=== PATIENT | male | born 1950 | race Hispanic/Latino ===

== ENCOUNTER 2017-05-27 14:37 | Inpatient (IN) | payer BC, OTHER ==
[~2017-05-27] VITALS: Ht 167.6 cm; Wt 124.9 kg
[2017-05-27 10:52] VITALS: BP 160/86
[2017-05-27 11:14] LABS: BASOPHILS % (AUTO) 0.4 % (0.0-5.0); EOSINOPHILS % (AUTO) 1.6 % (0.0-8.0); HEMATOCRIT 35.1 % (42-54); LYMPHOCYTES % (AUTO) 20.2 % (21.0-51.0); MEAN CORPUSCULAR HEMOGLOBIN 29.1 pg (27.0-33.0); MEAN CORPUSCULAR HGB CONC 32.5 g/dL (32.0-36.0); MEAN CORPUSCULAR VOLUME 89.5 fL (79-99); NEUTROPHILS % (AUTO) 68.8 % (40.0-77.0); PLATELET COUNT (AUTO) 296 K/uL (130-400); RED BLOOD CELL COUNT(AUTO) 3.92 MIL/uL (4.50-6.20); RED CELL DISTRIBUTION WIDTH 15.5 % (11.0-15.5); WHITE BLOOD COUNT (AUTO) 10.8 K/uL (4.8-10.8)
[2017-05-27 11:15] LABS: CREATININE 1.4 mg/dL (0.5-1.5); POTASSIUM 4.7 mmol/L (3.5-5.1)
[~2017-05-27 14:37] MED LIST: ALLO300T2 PO; ATOR20TA65 PO; CHOL500050 PO; FERR-82 PO; GABA-531 PO; INHALER IH; LISI-613 PO; PRED1TAB PO; TRAM50TA4 PO
[2017-05-30] VITALS (22 sets, daily range): BP systolic 112–204; BP diastolic 62–120
[2017-05-30] MEDS: CLINDAMYCIN 900 MG/D5% WATER 50 ML IV SCH ×2 (08:00→10:30)
[2017-05-30] MEDS ORDERED: LACTATED RINGERS 1000ML 1,000 ML IV ONE (08:10)
[2017-05-30] MEDS ORDERED: ALBU8.5H8 IH (08:28)
[2017-05-30] MEDS ORDERED: ACETAMINOPHEN EXTRA STRENGTH 500 MG TABLET ONE (08:33)
[2017-05-30] MEDS ORDERED: METOCLOPRAMIDE 10 MG/2 ML VIAL ONE (08:33)
[2017-05-30] MEDS ORDERED: KETOROLAC TROMETHAMINE 15MG/ML ONE (08:33)
[2017-05-30] MEDS ORDERED: CELECOXIB 200 MG CAP ONE (08:34)
[2017-05-30] MEDS ORDERED: OXYCODONE HCL 10 MG TAB.SR.12H PO ONE (08:34)
[2017-05-30] MEDS ORDERED: CLINDAMYCIN PHOSPHATE 150 MG/ML 6ML VIAL ONE (09:00)
[2017-05-30] MEDS ORDERED: BUPIVACAINE/PF 0.25% 30ML VIAL IJ ONE (09:01)
[2017-05-30] MEDS ORDERED: DEXAMETHASONE SOD PHOSPHATE 10MG/ML 1ML VIAL ONE (09:46)
[2017-05-30] MEDS ORDERED: GLYCOPYRROLATE 0.2 MG/ML 5 ML VIAL ONE (09:46)
[2017-05-30] MEDS ORDERED: MIDAZOLAM HCL 1 MG/ML 2ML VIAL ONE (09:46)
[2017-05-30] MEDS ORDERED: LIDOCAINE PF 2% 5ML ABBOJECT ONE (09:46)
[2017-05-30] MEDS ORDERED: PROPOFOL 10 MG/ML 20ML VIAL IV ONE (09:47)
[2017-05-30] MEDS ORDERED: TRANEXAMIC ACID 1000MG/10ML IV ONE (09:48)
[2017-05-30] MEDS ORDERED: FENTANYL CITRATE PF 50 MCG/1 ML 2ML VIAL ONE (11:05)
[2017-05-30] MEDS: SODIUM CHLORIDE 0.9% 1000ML 1,000 ML IV SCH (12:26)
[2017-05-30] MEDS ORDERED: PROMETHAZINE HCL 25 MG/ML 1ML AMPULE IM PRN (12:30)
[2017-05-30] MEDS ORDERED: OXYCODONE HCL 5 MG TAB PO PRN ×2 (12:30)
[2017-05-30] MEDS ORDERED: FERROUS FUMARATE 324 MG TABLET PO PRN (12:30)
[2017-05-30] MEDS ORDERED: POTASSIUM CHLORIDE 10% ELIXIR 20 MEQ/15 ML UDCUP PO PRN (12:30)
[2017-05-30] MEDS: ACETAMINOPHEN 325 MG TAB PO SCH ×2 (12:30→18:28)
[2017-05-30] MEDS ORDERED: TEMAZEPAM 15 MG CAPSULE PO PRN (12:30)
[2017-05-30] MEDS ORDERED: DIPHENHYDRAMINE HCL 25 MG CAPSULE PO PRN (12:30)
[2017-05-30] MEDS ORDERED: LIDOCAINE HCL-MPF 1% 2ML VIAL IVP PRN (12:30)
[2017-05-30] MEDS ORDERED: POTASSIUM CHLORIDE 20 MEQ ERTAB PO PRN (12:30)
[2017-05-30] MEDS ORDERED: POTASSIUM CHLORIDE 20MEQ/100ML 100 ML IV PRN (12:30)
[2017-05-30] MEDS ORDERED: DiphenhydrAMINE HCL 50 MG/ML VIAL IVP PRN (12:30)
[2017-05-30] MEDS ORDERED: TRAMADOL HCL 50 MG TABLET PO PRN (12:30)
[2017-05-30] MEDS: KETOROLAC TROMETHAMINE 15MG/ML IV PRN (15:05)
[2017-05-30] MEDS ORDERED: HYDRALAZINE HCL 20 MG/ML VIAL IV PRN (18:00)
[2017-05-30] MEDS ORDERED: NALOXONE HCL 0.4 MG/1 ML ML IVP PRN (18:00)
[2017-05-30] MEDS ORDERED: HYDROMORPHONE PCA 10 MG/50 ML 50 ML IV PRN (18:00)
[2017-05-30] MEDS: CLINDAMYCIN 900 MG/D5% WATER 50 ML IVPB SCH (18:29)
[2017-05-30] MEDS ORDERED: ALBUTEROL SULFATE 0.083% 2.5 MG/3 ML INH IH PRN (21:00)
[2017-05-30] MEDS: GABAPENTIN 300 MG CAPSULE PO SCH (22:31)
[2017-05-30] MEDS: ASPIRIN 325 MG TABLET PO SCH (22:31)
[2017-05-30] MEDS: FAMOTIDINE 20MG TAB 20 MG TAB PO SCH (22:32)
[2017-05-30] MEDS: CELECOXIB 200 MG CAP PO SCH (22:32)
[2017-05-30] MEDS: ATORVASTATIN CALCIUM 20 MG TABLET PO SCH (22:32)
[2017-05-30] MEDS: ALLOPURINOL 300 MG TABLET PO SCH (22:32)
[2017-05-31 00:31] VITALS: BP 128/70
[2017-05-31] MEDS: SODIUM CHLORIDE 0.9% 1000ML 1,000 ML IV SCH ×2 (00:57→08:26)
[2017-05-31] MEDS: CLINDAMYCIN 900 MG/D5% WATER 50 ML IVPB SCH (00:57)
[2017-05-31] MEDS: ACETAMINOPHEN 325 MG TAB PO SCH ×4 (00:59→18:42)
[2017-05-31 04:34] VITALS: BP 130/75
[2017-05-31 05:16] LABS: HEMATOCRIT 28.9 % (42-54); MEAN CORPUSCULAR HEMOGLOBIN 30.6 pg (27.0-33.0); MEAN CORPUSCULAR HGB CONC 33.9 g/dL (32.0-36.0); MEAN CORPUSCULAR VOLUME 90.2 fL (79-99); NUCLEATED RED BLOOD CELLS 0.1 % (0.0-0.19); PLATELET COUNT (AUTO) 252 K/uL (130-400); RED BLOOD CELL COUNT(AUTO) 3.21 MIL/uL (4.50-6.20); RED CELL DISTRIBUTION WIDTH 15.8 % (11.0-15.5)
[2017-05-31 05:34] LABS: CREATININE 1.8 mg/dL (0.5-1.5); POTASSIUM 4.3 mmol/L (3.5-5.1)
[2017-05-31 07:35] VITALS: BP 159/88
[2017-05-31] MEDS: FERROUS SULFATE 325 MG TABLET.DR PO SCH (10:04)
[2017-05-31] MEDS: ALLOPURINOL 300 MG TABLET PO SCH ×2 (10:04→21:57)
[2017-05-31] MEDS: FAMOTIDINE 20MG TAB 20 MG TAB PO SCH ×2 (10:04→21:58)
[2017-05-31] MEDS: LISINOPRIL 20 MG TABLET PO SCH (10:04)
[2017-05-31] MEDS: GABAPENTIN 300 MG CAPSULE PO SCH ×3 (10:04→21:58)
[2017-05-31] MEDS: ASPIRIN 325 MG TABLET PO SCH ×2 (10:04→21:57)
[2017-05-31] MEDS: CELECOXIB 200 MG CAP PO SCH ×2 (10:04→21:57)
[2017-05-31] MEDS: TAMSULOSIN HCL 0.4 MG CAP.ER.24H PO SCH (10:04)
[2017-05-31] MEDS: POLYETHYLENE GLYCOL 3350 17 GM POWD.PACK PO SCH (10:05)
[2017-05-31] MEDS: CALCIUM CARBONATE 500 MG TABLET PO PRN (10:05)
[2017-05-31] MEDS: KETOROLAC TROMETHAMINE 15MG/ML IV PRN (10:43)
[2017-05-31] MEDS: PREDNISONE 1 MG TAB PO SCH (13:44)
[2017-05-31] MEDS: PSYLLIUM SEED 1 EACH PACKET PO SCH (13:45)
[2017-05-31 14:00] VITALS: BP_SYST 150; BP_SYST 184; BP_DIAS 87; BP_DIAS 90
[2017-05-31 16:29] VITALS: BP 150/87
[2017-05-31 20:00] VITALS: BP 128/69
[2017-05-31] MEDS: ATORVASTATIN CALCIUM 20 MG TABLET PO SCH (21:57)
[2017-06-01] VITALS: BP 129/68
[2017-06-01] MEDS: CALCIUM CARBONATE 500 MG TABLET PO PRN (00:07)
[2017-06-01] MEDS: ACETAMINOPHEN 325 MG TAB PO SCH ×3 (00:08→11:23)
[2017-06-01 04:00] VITALS: BP 145/73
[2017-06-01 07:53] VITALS: BP 139/65
[2017-06-01] MEDS: FERROUS SULFATE 325 MG TABLET.DR PO SCH (08:27)
[2017-06-01] MEDS: ASPIRIN 325 MG TABLET PO SCH (08:27)
[2017-06-01] MEDS: FAMOTIDINE 20MG TAB 20 MG TAB PO SCH (08:27)
[2017-06-01] MEDS: ALLOPURINOL 300 MG TABLET PO SCH (08:27)
[2017-06-01] MEDS: POLYETHYLENE GLYCOL 3350 17 GM POWD.PACK PO SCH (08:27)
[2017-06-01] MEDS: TAMSULOSIN HCL 0.4 MG CAP.ER.24H PO SCH (08:28)
[2017-06-01] MEDS: CELECOXIB 200 MG CAP PO SCH (08:28)
[2017-06-01] MEDS: GABAPENTIN 300 MG CAPSULE PO SCH (08:32)
[2017-06-01] MEDS: LISINOPRIL 20 MG TABLET PO SCH (08:33)
[2017-06-01] MEDS ORDERED: ASPI-1012 PO (08:49)
[2017-06-01] MEDS ORDERED: HYDR-309 PO (08:49)
[2017-06-01] MEDS: PREDNISONE 1 MG TAB PO SCH (09:12)
[2017-06-01 11:21] VITALS: BP 156/79
[2017-06-01] MEDS: PSYLLIUM SEED 1 EACH PACKET PO SCH (11:22)
[2017-06-01] MEDS ORDERED: BISACODYL 5 MG TABLET.DR PO PRN (12:30)
[2017-06-02] MEDS ORDERED: BISACODYL 10 MG SUPP.RECT RC PRN (12:30)
[2017-06-06] MEDS ORDERED: ERGOCALCIFEROL (VITAMIN D2) 50,000 UNIT CAPSULE PO SCH (09:00)
== END 2017-06-01 15:25 | disposition home health service (06) | DRG 468 ==
LOC: EDSTATUS 14:45 → DAHIP 05-30 06:55 → 4AH 05-30 13:54
PROVIDERS: ADMIT Orthopaedic Surgery; ATTEND Orthopaedic Surgery
PROC: 0SPW0JZ Removal of Synthetic Substitute from Left Knee Joint, Tibial Surface, Open Approach (ICD-10-PCS; principal; 2017-05-30 10:23)
PROC: 0SRW0JZ Replacement of Left Knee Joint, Tibial Surface with Synthetic Substitute, Open Approach (ICD-10-PCS; 2017-05-30 10:23)
PROC: 0SBD0ZZ Excision of Left Knee Joint, Open Approach (ICD-10-PCS; 2017-05-30 10:23)
DX: T84.093A Other mechanical complication of internal left knee prosthesis, initial encounter (principal); M65.9 Synovitis and tenosynovitis, unspecified; Z96.652 Presence of left artificial knee joint
CPT/HCPCS: 36415; 80048; 85025; 85027; 87070; 87076; 88300; 88305; 88311; 94664; 96374; 96375; J0360; J1100; J1170; J1885; J2001; J2250; J2704; J2765; J3010; J3490; J7030; J7120; J7512

== ENCOUNTER 2017-10-03 11:00 | Inpatient (IN) | payer MEDICARE ==
[~2017-10-03] VITALS: Ht 167.6 cm; Wt 121.1 kg
[~2017-10-03 11:00] MED LIST changes: +ALBU8.5H8 IH; -ALLO300T2 PO; -ATOR20TA65 PO; -CHOL500050 PO; -INHALER IH; -PRED1TAB PO
[2017-12-09] MEDS: CLINDAMYCIN 900 MG/D5% WATER 50 ML IV SCH (06:45)
[2017-12-09 14:43] VITALS: BP 149/78
[2017-12-09 15:05] LABS: APPEARANCE,URINE Clear (CLEAR); BILIRUBIN,URINE Negative (NEGATIVE); COLOR,URINE Yellow (YELLOW); GLUCOSE, URINE (UA) Negative (NEGATIVE); KETONES,URINE Negative (NEGATIVE); LEUKOCYTE ESTERASE ,URINE Negative (NEGATIVE); NITRATE,URINE Negative (NEGATIVE); OCCULT BLOOD,URINE Negative (NEGATIVE); PH,URINE 5.5 (5.0-8.0); PROTEIN,URINE Negative (NEGATIVE); UROBILINOGEN,URINE 0.2 mg/dL (0.2-1.0)
[2017-12-09 15:36] LABS: BASOPHILS % (AUTO) 0.7 % (0.0-5.0); EOSINOPHILS % (AUTO) 2.3 % (0.0-8.0); HEMATOCRIT 34.8 % (42-54); LYMPHOCYTES % (AUTO) 29.4 % (21.0-51.0); MEAN CORPUSCULAR HEMOGLOBIN 28.4 pg (27.0-33.0); MEAN CORPUSCULAR HGB CONC 31.7 g/dL (32.0-36.0); MEAN CORPUSCULAR VOLUME 89.5 fL (79-99); MONOCYTES % (AUTO) 9.3 % (3.0-13.0); NEUTROPHILS % (AUTO) 58.3 % (40.0-77.0); PLATELET COUNT (AUTO) 268 K/uL (130-400); RED BLOOD CELL COUNT(AUTO) 3.89 MIL/uL (4.50-6.20); RED CELL DISTRIBUTION WIDTH 16.6 % (11.0-15.5); WHITE BLOOD COUNT (AUTO) 9.6 K/uL (4.8-10.8)
[2017-12-09] MEDS ORDERED: ALLO100T PO (15:48)
[2017-12-09] MEDS ORDERED: BETAMETHASONE TP (15:48)
[2017-12-10] MEDS: CLINDAMYCIN 900 MG/D5% WATER 50 ML IV SCH (16:30)
[2017-12-11] MEDS: CLINDAMYCIN 900 MG/D5% WATER 50 ML IV SCH (16:30)
[2017-12-12] VITALS (28 sets, daily range): BP systolic 135–187; BP diastolic 71–93
[2017-12-12] MEDS ORDERED: LACTATED RINGERS 1000ML 1,000 ML IV ONE (06:32)
[2017-12-12] MEDS ORDERED: LIDOCAINE PF 2% 5ML ABBOJECT ONE ×2 (07:34→10:33)
[2017-12-12] MEDS ORDERED: ROPIVACAINE 0.5% 5MG/ML 30ML IJ ONE ×2 (07:34→07:43)
[2017-12-12] MEDS ORDERED: SUCCINYLCHOLINE CHLORIDE 20 MG/ML 10 ML VIAL ONE (07:34)
[2017-12-12] MEDS ORDERED: FENTANYL CITRATE PF 50 MCG/1 ML 2ML VIAL ONE ×5 (07:35→11:30)
[2017-12-12] MEDS ORDERED: PROPOFOL 10 MG/ML 20ML VIAL IV ONE (07:35)
[2017-12-12] MEDS ORDERED: ROCURONIUM 10MG/1ML SYR 10 MG/ML ML ONE (07:35)
[2017-12-12] MEDS ORDERED: DEXAMETHASONE SOD PHOSPHATE 10MG/ML 1ML VIAL ONE (07:35)
[2017-12-12] MEDS ORDERED: BUPIVACAINE/EPI/PF 0.5% 30ML VIAL IJ ONE (08:29)
[2017-12-12] MEDS ORDERED: CLINDAMYCIN PHOSPHATE 150 MG/ML 6ML VIAL ONE (08:29)
[2017-12-12] MEDS: CLINDAMYCIN 900 MG/D5% WATER 50 ML IV SCH (08:30)
[2017-12-12] MEDS: TRANEXAMIC ACID 1000MG/10ML IV ONE ×2 (08:35→11:10)
[2017-12-12] MEDS ORDERED: GLYCOPYRROLATE 1 MG/5 ML SYRINGE ONE (08:49)
[2017-12-12] MEDS ORDERED: PHENYLEPHRINE HCL 10 MG/ML 1ML VIAL IV ONE (09:02)
[2017-12-12] MEDS ORDERED: SODIUM CHLORIDE 0.9% 10 ML VIAL ONE (09:02)
[2017-12-12] MEDS ORDERED: METOPROLOL TARTRATE 1 MG/ML 5ML VIAL IV ONE (09:30)
[2017-12-12] MEDS ORDERED: NEOSTIGMINE 5MG/5ML SYR IV ONE (10:28)
[2017-12-12] MEDS ORDERED: ONDANSETRON HCL 4 MG/2 ML VIAL ONE (10:36)
[2017-12-12] MEDS ORDERED: KETOROLAC TROMETHAMINE 30MG/ML ONE (10:37)
[2017-12-12] MEDS ORDERED: POTASSIUM CHLORIDE 20 MEQ ERTAB PO PRN (10:45)
[2017-12-12] MEDS ORDERED: DiphenhydrAMINE HCL 50 MG/ML VIAL IVP PRN (10:45)
[2017-12-12] MEDS: ACETAMINOPHEN EXTRA STRENGTH 500 MG TABLET PO SCH ×2 (10:45→18:26)
[2017-12-12] MEDS ORDERED: POTASSIUM CHLORIDE 20MEQ/100ML 100 ML IV PRN (10:45)
[2017-12-12] MEDS ORDERED: TRAMADOL HCL 50 MG TABLET PO PRN (10:45)
[2017-12-12] MEDS ORDERED: ONDANSETRON HCL 4 MG/2 ML VIAL IVP PRN (10:45)
[2017-12-12] MEDS ORDERED: FERROUS FUMARATE 324 MG TABLET PO PRN (10:45)
[2017-12-12] MEDS ORDERED: OXYCODONE HCL 5 MG TAB PO PRN (10:45)
[2017-12-12] MEDS ORDERED: LIDOCAINE HCL-MPF 1% 2ML VIAL IVP PRN (10:45)
[2017-12-12] MEDS ORDERED: POTASSIUM CHLORIDE 10% ELIXIR 20 MEQ/15 ML UDCUP PO PRN (10:45)
[2017-12-12] MEDS ORDERED: CALCIUM CARBONATE 500 MG TABLET PO PRN (10:45)
[2017-12-12] MEDS ORDERED: TEMAZEPAM 15 MG CAPSULE PO PRN (10:45)
[2017-12-12] MEDS ORDERED: HYDRALAZINE HCL 20 MG/ML VIAL ONE (11:36)
[2017-12-12] MEDS ORDERED: MEPERIDINE-PF 25 MG/ML SYG ONE (11:41)
[2017-12-12] MEDS: SODIUM CHLORIDE 0.9% 1000ML 1,000 ML IV SCH ×2 (12:37→20:38)
[2017-12-12] MEDS ORDERED: ALBUTEROL SULFATE 0.083% 2.5 MG/3 ML INH IH PRN (15:15)
[2017-12-12] MEDS: FERROUS SULFATE 325 MG TABLET.DR PO SCH (15:40)
[2017-12-12] MEDS: OXYCODONE HCL 5 MG TAB PO PRN ×2 (16:15→20:05)
[2017-12-12] MEDS: CLINDAMYCIN 900 MG/D5% WATER 50 ML IVPB SCH ×2 (16:15→23:21)
[2017-12-12] MEDS: ALLOPURINOL 100 MG TABLET PO SCH (20:04)
[2017-12-12] MEDS: ASPIRIN 325 MG TABLET PO SCH (20:04)
[2017-12-12] MEDS: GABAPENTIN 300 MG CAPSULE PO SCH (20:04)
[2017-12-12] MEDS: FAMOTIDINE 20MG TAB 20 MG TAB PO SCH (20:04)
[2017-12-12] MEDS: CELECOXIB 200 MG CAP PO SCH (20:04)
[2017-12-13] MEDS: ACETAMINOPHEN EXTRA STRENGTH 500 MG TABLET PO SCH ×3 (02:34→17:15)
[2017-12-13 03:53] VITALS: BP 163/97
[2017-12-13] MEDS: OXYCODONE HCL 5 MG TAB PO PRN ×5 (03:59→22:19)
[2017-12-13 04:42] LABS: HEMATOCRIT 31.2 % (42-54); MEAN CORPUSCULAR HEMOGLOBIN 28.7 pg (27.0-33.0); MEAN CORPUSCULAR VOLUME 89.6 fL (79-99); PLATELET COUNT (AUTO) 243 K/uL (130-400); RED BLOOD CELL COUNT(AUTO) 3.49 MIL/uL (4.50-6.20); RED CELL DISTRIBUTION WIDTH 16.3 % (11.0-15.5); WHITE BLOOD COUNT (AUTO) 10.8 K/uL (4.8-10.8)
[2017-12-13 04:51] LABS: CREATININE 1.5 mg/dL (0.5-1.5); POTASSIUM 4.8 mmol/L (3.5-5.1)
[2017-12-13] MEDS: SODIUM CHLORIDE 0.9% 1000ML 1,000 ML IV SCH (06:13)
[2017-12-13] MEDS: KETOROLAC TROMETHAMINE 15MG/ML IV PRN ×3 (06:23→19:48)
[2017-12-13 07:58] VITALS: BP 160/84
[2017-12-13] MEDS: TAMSULOSIN HCL 0.4 MG CAP.ER.24H PO SCH (08:49)
[2017-12-13] MEDS: FERROUS SULFATE 325 MG TABLET.DR PO SCH (08:49)
[2017-12-13] MEDS: FAMOTIDINE 20MG TAB 20 MG TAB PO SCH ×2 (08:49→19:48)
[2017-12-13] MEDS: CELECOXIB 200 MG CAP PO SCH ×2 (08:49→19:48)
[2017-12-13] MEDS: ASPIRIN 325 MG TABLET PO SCH ×2 (08:49→19:48)
[2017-12-13] MEDS: POLYETHYLENE GLYCOL 3350 17 GM POWD.PACK PO SCH (08:49)
[2017-12-13] MEDS: GABAPENTIN 300 MG CAPSULE PO SCH ×3 (08:53→19:48)
[2017-12-13] MEDS: ALLOPURINOL 100 MG TABLET PO SCH ×3 (08:53→19:48)
[2017-12-13] MEDS: LISINOPRIL 20 MG TABLET PO SCH (08:54)
[2017-12-13] MEDS: BETAMETHASONE VALERATE 45 GM CREAM.GM. TP SCH (09:04)
[2017-12-13 12:00] VITALS: BP 151/79
[2017-12-13 15:41] VITALS: BP 148/81
[2017-12-13 20:00] VITALS: BP 155/82
[2017-12-14] VITALS: BP 139/82
[2017-12-14] MEDS: ACETAMINOPHEN EXTRA STRENGTH 500 MG TABLET PO SCH ×2 (03:50→11:00)
[2017-12-14] MEDS: OXYCODONE HCL 5 MG TAB PO PRN ×2 (03:51→09:13)
[2017-12-14 04:24] VITALS: BP 149/80
[2017-12-14] MEDS: KETOROLAC TROMETHAMINE 15MG/ML IV PRN (06:08)
[2017-12-14 08:11] VITALS: BP 144/84
[2017-12-14] MEDS: BETAMETHASONE VALERATE 45 GM CREAM.GM. TP SCH (09:00)
[2017-12-14] MEDS: GABAPENTIN 300 MG CAPSULE PO SCH ×2 (09:07→14:29)
[2017-12-14] MEDS: CELECOXIB 200 MG CAP PO SCH (09:07)
[2017-12-14] MEDS: FERROUS SULFATE 325 MG TABLET.DR PO SCH (09:07)
[2017-12-14] MEDS: POLYETHYLENE GLYCOL 3350 17 GM POWD.PACK PO SCH (09:07)
[2017-12-14] MEDS: FAMOTIDINE 20MG TAB 20 MG TAB PO SCH (09:08)
[2017-12-14] MEDS: ALLOPURINOL 100 MG TABLET PO SCH ×2 (09:08→14:29)
[2017-12-14] MEDS: TAMSULOSIN HCL 0.4 MG CAP.ER.24H PO SCH (09:08)
[2017-12-14] MEDS: LISINOPRIL 20 MG TABLET PO SCH (09:08)
[2017-12-14] MEDS: ASPIRIN 325 MG TABLET PO SCH (09:08)
[2017-12-14 11:26] VITALS: BP 133/82
[2017-12-14] MEDS ORDERED: ASPI-1012 PO (12:29)
[2017-12-14] MEDS ORDERED: HYDR-4457 PO (12:29)
[2017-12-15] MEDS ORDERED: BISACODYL 10 MG SUPP.RECT RC PRN (10:45)
== END 2017-12-14 16:50 | disposition home health service (06) | DRG 470 ==
LOC: EDSTATUS 11:00 → DAHIP 12-12 06:13 → 4AH 12-12 12:04
PROVIDERS: ADMIT Orthopaedic Surgery; ATTEND Orthopaedic Surgery
PROC: 0SRC0JZ Replacement of Right Knee Joint with Synthetic Substitute, Open Approach (ICD-10-PCS; principal; 2017-12-12 08:25)
DX: M17.11 Unilateral primary osteoarthritis, right knee (principal); I10 Essential (primary) hypertension
CPT/HCPCS: 36415; 80048; 81003; 85025; 85027; 88305; 88311; 94664; J0330; J0360; J1100; J1885; J2001; J2175; J2370; J2405; J2704; J2710; J2795; J3010; J3490; J7120